=== PATIENT | female | born 1985 ===

== ENCOUNTER 2017-03-28 15:02 | Emergency (ER) | payer OTHER ==
[2017-03-28 15:24] VITALS: BP 107/47; PULSE 65; RESP 18; TEMP 97.6; O2SAT 99
--- NOTE | 2017-03-28 15:29 | ED PDOC ---
HPI: Female Pain Time Seen by Provider: 03/28/17 15:15 Chief Complaint (Nursing): Female Genitourinary History Per: Patient Current Symptoms Are (Timing): Intermittent Episodes Severity: Mild Pain Scale Rating Of: 2 Quality Of Discomfort: Cramping Additional Complaint(s): Vaginal spotting intermittent x 3 weeks assoc with mild lower abd cramping. LMP 7 weeks ago. Abnormal Vaginal Bleeding: Yes Past Medical History Vital Signs: Last Vital Signs Temp 97.6 F 03/28/17 15:21 Pulse 65 03/28/17 15:21 Resp 18 03/28/17 15:21 BP 107/47 L 03/28/17 15:21 Pulse Ox 99 03/28/17 15:21 - Medical History PMH: No Chronic Diseases - Family History Family History: States: Unknown Family Hx - Allergies Allergies/Adverse Reactions: Allergies Allergy/AdvReac Type Severity Reaction Status Date / Time No Known Allergies Allergy Verified 03/28/17 15:21 Review of Systems Gastrointestinal: Positive for: Abdominal Pain Genitourinary Female: Positive for: Vaginal Bleeding. Negative for: Dysuria, Frequency Musculoskeletal: Negative for: Back Pain Physical Exam - Physical Exam Appears: Positive for: Non-toxic, No Acute Distress Skin: Positive for: Normal Color, Warm, DRY Gastrointestinal/Abdominal: Positive for: Bowel Sounds, Soft. Negative for: Tenderness Pelvic Exam: Positive for: External Exam Normal, Blood (spotting). Negative for : Tender Adnexa, Tender Uterus - Laboratory Results Result Diagrams: 03/28/17 16:11 03/28/17 16:11 - ECG O2 Sat by Pulse Oximetry: 99 Disposition - Clinical Impression Clinical Impression: Threatened miscarriage - Patient ED Disposition Is Patient to be Admitted: No Counseled Patient/Family Regarding: Studies Performed, Diagnosis, Need For Followup, Rx Given - Disposition [facility] Disposition: Routine/Home Disposition Time: 17:54 Condition: FAIR Instructions: Threatened Miscarriage (ED) Forms: [employer] (Telugu) Print Language: BELIZEAN
[2017-03-28 16:15] LABS: BASO # 0.1 K/uL (0.0-0.2); BASO % 1.1 % (0.0-2.0); EOS % 0.6 % (0.0-4.0); HEMATOCRIT 33.6 % (34.0-47.0); LYMPH # 1.8 K/uL (1.0-4.3); LYMPH % 25.1 % (20.0-40.0); MEAN CORPUSCULAR HEMOGLOBIN 31.3 pg (27.0-31.0); MEAN CORPUSCULAR HGB CONC 34.4 g/dL (33.0-37.0); MEAN PLATELET VOLUME 8.6 fl (7.2-11.7); MONO # 0.4 K/uL (0.0-0.8); MONO % 6.1 % (0.0-10.0); NEUT # 4.7 K/uL (1.8-7.0); NEUT % 67.1 % (50.0-75.0); NRBC % 0.2 % (0.0-0.0); RED CELL DISTRIBUTION WIDTH 13.6 % (11.5-14.5)
[2017-03-28 16:30] LABS: ALB/GLOB RATIO 1.2 (1.0-2.1); BILIRUBIN,TOTAL 0.6 mg/dl (0.2-1.3); CARBON DIOXIDE 21 mmol/L (22-30); CHLORIDE 107 mmol/L (98-107); GFR AFRICAN-AMERICAN > 60; GLUCOSE,RANDOM 81 mg/dL (65-105); SODIUM 136 mmol/l (132-148); TOTAL PROTEIN 7.2 G/DL (6.3-8.2)
[2017-03-28 16:40] LABS: ALKALINE PHOSPHATASE 41 U/L (38-126); ALT/SGPT 35 U/L (9-52); AST/SGOT 23 U/L (14-36); BLOOD UREA NITROGEN 12 mg/dl (7-17)
--- NOTE | 2017-03-28 17:52 | US ---
PROCEDURE: Ob/pelvic ultrasound dated 03/28/2017 HISTORY: Rule out ectopic . COMPARISON: No prior study available for comparison FINDINGS: UTERUS: The uterus is anteverted measuring approximately 9.9 x 8.8 x 4.7 cm. There is a single living intrauterine gestation with measurements as follows: Gestational sac: MSD = 4.66 cm = 10 weeks 2 days Yolk sac: 0.69 cm pole: CRL = 2.24 cm = 9 weeks 0 days Heart rate: 173 bpm. age (Ultrasound estimated): 9 weeks 5 days 0 weeks 5 days Milli-gestational hemorrhage: None. Date of delivery (Ultrasound estimated) : 10/26/2017 CERVIX: Long and closed. No cervical abnormality seen. RIGHT OVARY: Right ovary measures approximately 3.0 x 2.8 x 2.0 cm. No mass lesion. Normal flow. LEFT OVARY: Left ovary measures approximately 2.6 x 2.9 x 1.3 cm. No solid mass. Normal flow. FREE FLUID: None. OTHER FINDINGS: None. IMPRESSION: Single living intrauterine gestation at approximately 9 weeks 5 days 0 weeks 5 days. heart rate documented at 173 BPM
== END 2017-03-28 18:38 | disposition home or self-care (01) ==
LOC: H.ER 15:02
DX: O20.0 Threatened abortion (principal); Z3A.09 9 weeks gestation of pregnancy; Z36.9 Encounter for antenatal screening, unspecified